=== PATIENT | female | born 1990 | race Two or more races ===

== ENCOUNTER 2024-10-14 09:23 | Observation (INO) | payer OTHER ==
[~2024-10-14] VITALS: Ht 162.6 cm; Wt 74.4 kg
--- NOTE | 2024-10-14 12:24 | DVH ---
LIMITED OB ULTRASOUND > 14 WKS: HISTORY: VAGINAL BLEEDING/ NO CARE TECHNIQUE: Multiple real-time grayscale images of the gravid uterus with duplex Doppler color flow an d M-mode spectral analysis. COMPARISON: None FINDINGS: IUP single live fetus at 33 weeks 3 days based on composite averages of the BPD, head circumference, abdominal circumference and femur length. Estimated weight 2148 grams. heart rate 128 beats per minute. CURTIS 14.3 cm Funneling of the cervix with the internal os measuring up to 1.7 cm in with. The umbilical cord exten ds adjacent to the internal os, partially interposed between the head in the internal os. Cervi sheri length measures 3.7 cm. Cephalic presentation Grade 3 placenta without previa or abruption, in anterior position. IMPRESSION: 1. IUP single live fetus at 33 weeks 3 days AUA corresponding to an KEVIN of 11/29/2024. 2. Funneling of the cervix measuring up to 1.7 cm in width at the level of the internal cervical os. 3. Umbilical cord extends adjacent to the cervical os, in between the head and cervix. Possible vasa previa. Preliminary findings were reported to the patient's RNFranchesca by the machinist apprentice after the examination .
[2024-10-14] MEDS ORDERED: PREN-96 PO (12:38)
[2024-10-14] MEDS: TERBUTALINE SULFATE 1 MG/ML 1ML VIAL SC SCH (12:49)
[2024-10-14] MEDS: BETAMETHASONE ACET (30mg/5ml) 5ml Vial 6mg/ml IM ONE (12:50)
[2024-10-14] MEDS: MAGNESIUM SULFATE 100 ML IV ONE (13:05)
[2024-10-14] MEDS: MAGNESIUM SULFATE 40MG/ML 1,000 ML IV SCH (13:10)
[2024-10-14] MEDS ORDERED: LACTATED RINGER'S 1,000 ML IV SCH (13:15)
[2024-10-14] MEDS: AMPICILLIN SOD 2GM INJ 2 GM in SODIUM CHL 0.9% 100 ML IV ONE (13:52)
--- NOTE | 2024-10-14 14:18 | DVH ---
CLINICAL HISTORY: No care. Leaking fluid. COMPARISON: Ob ultrasound done earlier the same day. TECHNIQUE: biophysical profile was performed. Transabdominal sonographic images of the fetus we re obtained. FINDINGS: The fetus is in breech position. heart rate measures 144 BPM. Amniotic fluid index me asures 13.0 cm. The placenta is anterior in position. BPP profile is an overall score of 8/8, with 2/2 points for breathing, with at least one episode of breathing over a 30 second duration during a 30 minute observation, 2/2 points for m ovements, with 3 or more discrete body or limb movements, 2/2 points for tone, with one or more episodes of extremity extension with return to flexion, or opening and closing of hand, and 2/ 2 points for amniotic fluid, with at least 1 pocket of amniotic fluid that measures 2 cm in 2 perpend icular planes. IMPRESSION: 1. BPP score of 8/8. 2. Breech position.
--- NOTE | 2024-10-17 09:49 | DVHDS2 ---
Physician Discharge Progress N Final Diagnosis: vag bleeding,ptl no care Operations or Procedures: Operations or Procedures nst,sono Condition on Discharge: Higher Level of Care Disposition: Acute Care Facility Discharge Instructions: Diet: Regular Activity: No Restrictions, As Tolerated Medications: mg Follow Up Care: Specialist: to [facility] Discharge Statement: "Patient was advised to return to the ER or call 911 if any headaches, dizziness, shortness of breath, chest pain, abdominal pain, bleeding, fevers, or worsening of medical condition. Patient was counseled about treatment plan, medications, possible side effects, patientverbalized understanding. All questions were answered to the best of my ability. This discharge took greater then 30 minutes in planning, reviewing documentation, counseling the patient, and discussing with other team members." MITA CUEVAS DO Oct 17, 2024 09:49
--- NOTE | 2024-10-23 08:56 | DVHTS ---
Transfer Summary Transfer Summary Date of Admission Oct 14, 2024 at 12:34 Date of Transfer: Oct 14, 2024 Transfer Diagnosis vag bleeding,ptl,no care Brief Hx & Hospital Course: pt presented with vag bleeding,she has no pnc and was noted to bve in ptl subseq pt was transferred to [facility] Transfer to: [facility] Discharge Instructions: via air Transfer Status stable Date of Service: Oct 14, 2024 Billing Provider: MITA CUEVAS DO Common Visit Codes: [id number] INP/OBS CARE (HIGH) MITA CUEVAS DO Oct 23, 2024 08:56
--- NOTE | 2024-10-23 09:11 | DVHHP2 ---
OB CC & HPI Date Date of Admission: Oct 14, 2024 Patient Identification: : 8 Para: 4 EDC: Dec 01, 2024 EGA: 33 wks Chief Complaints: Reason for admission: IUP - Indication for induction: other Admission Nurse Assessment Rev: No History of Present Complaints pt presented with vag bleeding and has no care Past Medical History Cardiac: No pertinent Hx Pulmonary: No pertinent Hx Central Nervous System: No pertinent Hx GI: No pertinent Hx Hemotology/Oncology: No pertinent Hx Hepatobiliary: No pertinent Hx Psychiatric: No pertinent Hx Musculoskeletal: No pertinent Hx Rheumotologic: No pertinent Hx Infectious Disease: No peritnent Hx ENT: No pertinent Hx Renal/: No pertinent Hx Endocrine: No pertinent Hx Dermatology: No pertinent Hx Past Surgical History: No pertinent Hx OB History OB History Care: None Ultrasounds: No ultrasounds Obstetrical Complications: None Medical Complications: None Allergies: Coded Allergies: NO KNOWN ALLERGIES (Unverified , 10/14/24) Home Meds Reported Medications Vit W/ Ferrous Fumara ( One Daily) Daily Tab, 1 TAB PO DAILY, #30 TAB 11 Refills 10/14/24 Family & Social History Family/Social History Blood Type: Unknown Rubella: unknown RPR/VDRL: Unknown GBS Status: Unknown HBsAG: Unknown Review of Systems Constitutional: No symptom reported Ears, Nose, & Throat: No symptom reported Eyes: No symptom reported Pulmonary/Respiratory: No symptom reported Cardiovascular: No symptom reported Gastrointestinal: No symptom reported Genitourinary: No symptom reported Musculoskeletal: No symptom reported Skin: No symptom reported Psychiatric: No symptom reported Endocrine: No symptom reported Hemotologic/Lymphatic: No symptom reported OB Admission Exam Physical Exam HEENT: TMs Normal, Fontanelles Normal, Nasal Mucosa Normal, Eyes non-injected, Oropharynx Normal, PERRLA, Moist Membranes, EOMI Heart: Rhythm Normal Lungs: Clear Abdomen: Non tender Extremities: Normal Reflexes: Normal Cervical Dilatation: Fingertip Effacement: 25% Station: -3 Membranes: Intact Heart Rate: 130's Accelerations: Accelerations Present Decelerations: No Decelerations Short Term Variability: Present Chcf Variability: Average (6-25) Contractions on Admission: 6-10 Minutes Apart Intensity: Mild OB Plan Plan Admitting Diagnosis: iup at 33 wks with vag bleeding ptl no care Other Plan: transfer to [facility] mg venkat and MITA Lo DO Oct 23, 2024 09:11
== END 2024-10-14 13:55 | disposition short-term general hospital (02) ==
LOC: UNDOADMOB 09:23 → LDRP 09:23 → UNDOADMOB 12:33 → LDRP 12:33 → OBSVTOIN 12:34 → INTOOBSV 12:34 → UNDODISOB 13:55 → UNDODISIN 13:55
PROVIDERS: ADMIT Obstetrics & Gynecology; ATTEND Obstetrics & Gynecology
DX: O09.33 Supervision of pregnancy with insufficient antenatal care, third trimester (principal); O46.93 Antepartum hemorrhage, unspecified, third trimester; O99.891 Other specified diseases and conditions complicating pregnancy; M54.9 Dorsalgia, unspecified; Z79.899 Other long term (current) drug therapy; Z98.890 Other specified postprocedural states; Z3A.33 33 weeks gestation of pregnancy
CPT/HCPCS: 59025; 76805; 76818; 81002; 94760; 96365; 96372; 96375; G0378; J0290; J0702; J3105; J3475; 96360